=== PATIENT | female | born 1985 | race Caucasian/White ===

== ENCOUNTER → 2017-01-21 | Outpatient (CLI) | payer BC ==
--- NOTE | 2017-01-22 09:48 | MRI ---
STUDY: MRI OF THE BRAIN WITHOUT AND WITH GADOLINIUM HISTORY: Elevated prolactin level. Technique: Multiplanar multi-sequence MRI of the brain was obtained utilizing standard departmental p rotocol. Sagittal and axial T1, axial T2, FLAIR, diffusion (DWI/ADC) images through the brain were pe rformed. 20 cc of Omniscan was administered intravenously without reported complication following acquisition of informed written consent. Post gadolinium axial and coronal T1 weighted images were also performed and reviewed. High-resolution sagittal and coronal pre and post gadolinium T1 and coronal T2 weighted images throug h the pituitary gland were also performed. Comparison: None. Findings: Pre gadolinium brain: The sulci, cisterns and ventricles are age appropriate. There are several punct ate foci of T2 prolongation in the subcortical white matter of both hemispheres. This is a nonspecifi c finding which may be seen in a variety of clinical conditions including but not limited to microang iopathic change and demyelinating disease in a patient of this age. These may also be seen in neurolo gically normal individuals. There is no evidence of acute territorial infarction, hemorrhage, mass, mass effect, or midline shift . There are no abnormal intra-axial or extra-axial fluid collections. The major intracranial vascula r flow voids appear intact. The right vertebral artery is dominant. Post gadolinium brain: Following the uneventful administration of intravenous gadolinium, there is no evidence of abnormal parenchymal or leptomeningeal enhancement. MRI sella: There is a partially empty sella turcica. Pituitary glandular tissue is identified in the inferior aspect of the sella. The infundibulum appears draped over the superior margin of the dorsum sella. No discrete mass is identified. There is no evidence of cavernous sinus invasion. The cavernou s internal carotid artery flow voids are intact. There is no evidence of optic nerve or optic chiasm compression. IMPRESSION: 1. No evidence of acute intracranial abnormality. 2. Nonspecific white matter change. 3. Partially empty sella turcica. No evidence of discrete mass within the sella at this time. Reported By:
== END | disposition home or self-care (01) ==
LOC: RAD 15:20
PROVIDERS: ATTEND Obstetrics & Gynecology
DX: E22.1 Hyperprolactinemia (principal)
CPT/HCPCS: 70553

== ENCOUNTER 2017-06-19 18:56 | Emergency (ER) | payer BC ==
--- NOTE | 2017-06-19 19:02 | DR.GENAD ---
HPI - HPI Comment HPI Comment: HISTORY BELOW. - Complaint/Symptoms Chief Complaint Doctors Comments: PAIN UPPER LEFT ABDOMEN AND LOWER LEFT CHEST UNDER BREAST TIMES ONE WEEK. PAIN WORSE TONIGHT. PAIN AGREVATED BY EATING. NAUSEATED BUT NO VOMITING OR DIARRHEA. TAKES PRECOCET FOR CHRONIC BACK PAIN BUT STILL SEVERE PAIN NOTED. NO TRAUMA. - Nurses notes reviewed Nurses Notes Review: Yes - Source History Provided: Parent - Mode of Arrival Mode of Arrival: Ambulatory - Timing Came on: Gradually - Duration Duration: Constant Duration: Days - Severity Severity: Moderate ROS - Review of Systems Constitutional: Weakness, Fatigue. negative: Fever Eyes: No Symptoms Reported. negative: Eye Pain, Discharge ENTM: No Symptoms Reported. negative: Ear Discharge, Nose Discharge, Nose Congestion, Throat Pain Respiratoy: No Symptoms Reported, Non-Productive Cough, Short of Breath. negative: Productive Cough, Wheezing, Hemoptysis Cardiovascular: Chest Pain. negative: Edema, Palpitations Gastrointestinal/Abdominal: Abdominal Pain, Nausea. negative: Diarrhea, Vomiting Genitourinary: No Symptoms Reported Neurological: No Symptoms Reported, Weakness. negative: Headache, Dizziness Musculoskeletal: Muscle Pain Integumentary: No Symptoms Reported Hematologic/Lymphatic: No Symptoms Reported Endocrine: No Symptoms Reported All Other Systems: Reviewed and Negative PE - Vital Signs Vitals: Temperature 98.9 F Pulse Rate [Left Brachial] 85 Pulse Rate 82 Respiratory Rate 16 Blood Pressure [Left Arm] 147/81 Blood Pressure 130/82 O2 Sat by Pulse Oximetry 100 - General Limitations: No Limitations General Appearance: Alert - Head Head Exam: Normal Inspection - Eyes Eye exam: Normal Appearance - ENT ENT Exam: Normal External Ear Exam External Ear Exam: Normal External Inspection TM/Canal Exam: Bilateral Normal Nose Exam: Normal Nose Exam Mouth Exam: Normal Inspection Throat Exam: Normal Inspection - Neck Neck Exam: Normal Inspection - Chest Chest Inspection: Symmetric Chest Wall Rise - Respiratory Respiratory Exam: Normal Lung Sounds Bilat Respiratory Exam: Bilateral Rhonchi, Lower Rhonchi - Cardiovascular Cardiovascular Exam: Regular Rate, Normal Rhythm, Normal Heart Sounds - Abdominal Exam Abdominal Exam: Normal Bowel Sounds, Soft, Tenderness Abdominal Tenderness: LUQ, Moderate - Extremities Extremities Exam: Normal Inspection - Back Back Exam: Normal Inspection - Neurologic Neurological Exam: Alert, Oriented X3 - Psychiatric Psychiatric Exam: Normal Affect, Normal Mood - Skin Skin Exam: Normal Color MDM - Differential Diagnosis Differential Diagnosis: ABDOMINAL PAIN, DC, PE, PUD, GASTRITIS, PNEUMONIA Course - Treatment Treatment: SEE ORDERS. IN PEPCID AND IV NS IN ED. - Consultation Consultation Comments: DR. BENTLEY SAID PATIENT CAN TAKE PAIN MED Q6HRS PRN FOR PAIN. - Education/Counseling Education/Counseling: Patient, Education Educated On: Diagnosis, Needs for Follow Up ROR - Labs Reviewed Laboratory Results Reviewed?: Yes Result Diagrams: 06/19/17 20:04 06/19/17 20:04 Laboratory: WBC 13.1 X10^3/uL (3.6-10.0) H 06/19/17 20:04 RBC 5.35 X10^6/uL (3.5-5.4) 06/19/17 20:04 Hgb 13.8 g/dL (12.0-16.0) 06/19/17 20:04 Hct 42.0 % (36.0-47.0) 06/19/17 20:04 MCV 78.5 fL (80.0-100.0) L 06/19/17 20:04 MCH 25.9 pg (27.0-34.0) L 06/19/17 20:04 MCHC 33.0 g/dL (33.0-35.0) 06/19/17 20:04 RDW 15.7 % (11.6-16.5) 06/19/17 20:04 Plt Count 480 X10^3/uL (150.0-450.0) H 06/19/17 20:04 Plt Count Comment Increased (ADEQUATE) A 06/19/17 20:04 MPV 7.4 fL (7.4-11.0) 06/19/17 20:04 Neut % 56.4 % (42.0-75.0) 06/19/17 20:04 Lymph % 30.6 % (21.0-51.0) 06/19/17 20:04 Garrett % 7.9 % (0.0-13.0) 06/19/17 20:04 Eos % 3.6 % (0.9-2.9) H 06/19/17 20:04 Baso % 1.5 % (0.2-1.0) H 06/19/17 20:04 Neut # 7.4 x10^3/uL (2.2-4.8) H 06/19/17 20:04 Lymph # 4.0 X10^3/uL (1.3-2.9) H 06/19/17 20:04 Garrett # 1.0 x10^3/uL (0.3-0.8) H 06/19/17 20:04 Eos # 0.5 x10^3/uL (0.0-0.2) H 06/19/17 20:04 Baso # 0.2 X10^3/uL (0.0-0.1) H 06/19/17 20:04 Absolute Nucleated RBC 0.1 /100WBC 06/19/17 20:04 Plt Morphology Comment Normal (NORMAL) 06/19/17 20:04 RBC Morphology Abnormal (NORMAL) A 06/19/17 20:04 Hypochromasia Slight A 06/19/17 20:04 Microcytosis Slight A 06/19/17 20:04 D-Dimer 320 ng/mL (0-400) 06/19/17 20:04 Sodium 139 mmol/L (136-145) 06/19/17 20:04 Corrected Sodium TNP 06/19/17 20:04 Potassium 4.4 mmol/L (3.5-5.1) 06/19/17 20:04 Chloride 102 mmol/L (98-107) 06/19/17 20:04 Carbon Dioxide 27.7 mmol/L (21-32) 06/19/17 20:04 BUN 11 mg/dL (7-18) 06/19/17 20:04 Creatinine 0.94 mg/dL (0.55-1.02) 06/19/17 20:04 Est GFR (MDRD) Af Amer > 60 (>60) 06/19/17 20:04 Est GFR (MDRD) Non-Af > 60 (>60) 06/19/17 20:04 Glucose 94 mg/dL (65-99) 06/19/17 20:04 Calcium 8.9 mg/dL (8.5-10.1) 06/19/17 20:04 Corrected Calcium TNP 06/19/17 20:04 Total Bilirubin 0.20 mg/dL (0.2-1.0) 06/19/17 20:04 AST 35 Units/L (15-37) 06/19/17 20:04 ALT 65 Units/L (12-78) 06/19/17 20:04 Alkaline Phosphatase 128 Units/L (46-116) H 06/19/17 20:04 Creatine Kinase 65 Units/L (26-192) 06/19/17 20:04 CK-MB (CK-2) < 1.0 ng/mL (0-4.0) 06/19/17 20:04 CK/CKMB % Calc 1.5 % (<4) 06/19/17 20:04 Troponin I < 0.02 ng/mL (0-1.5) 06/19/17 20:04 Total Protein 8.5 g/dL (6.4-8.2) H 06/19/17 20:04 Albumin 3.9 g/dL (3.4-5.0) 06/19/17 20:04 Globulin 4.6 g/dL (2.5-4.5) H 06/19/17 20:04 Albumin/Globulin Ratio 0.8 Ratio (1.1-2.1) L 06/19/17 20:04 Amylase 21 Units/L (25-115) L 06/19/17 20:04 Lipase 119 Units/L (73-393) 06/19/17 20:04 Specimen Type Clean catch urine 06/19/17 19:24 Urine Color Yellow (YELLOW) 06/19/17 19:24 Urine Appearance Cloudy (CLEAR) 06/19/17 19:24 Urine pH 5.0 (5.0 - 8.0) 06/19/17 19:24 Ur Specific [place] 1.025 (1.000-1.030) 06/19/17 19:24 Urine Protein 2+ (NEGATIVE) 06/19/17 19:24 Urine Glucose (UA) Negative (NEGATIVE) 06/19/17 19:24 Urine Ketones Negative (NEGATIVE) 06/19/17 19:24 Urine Occult Blood 1+ (NEGATIVE) 06/19/17 19:24 Urine Nitrite Negative (NEGATIVE) 06/19/17 19:24 Urine Bilirubin Negative (NEGATIVE) 06/19/17 19:24 Urine Urobilinogen Normal (NORMAL) 06/19/17 19:24 Ur Leukocyte Esterase 1+ (NEGATIVE) 06/19/17 19:24 Urine RBC 0-3 /HPF (NONE SEEN) 06/19/17 19:24 Urine WBC 3-5 /HPF (NONE SEEN) 06/19/17 19:24 Ur Squamous Epith Cells Numerous /HPF (NEGATIVE) 06/19/17 19:24 Urine Bacteria 2+ /HPF (NEGATIVE) 06/19/17 19:24 Ur Culture Indicated? No/not indicated 06/19/17 19:24 H. pylori IgG Antibody Positive (NEGATIVE) A 06/19/17 20:04 - XRAY XRAY Findings: REPORT DISCUSS WITH PATIENT. - Diagnosis Discharge Problem: Helicobacter pylori ab+ Abdominal pain Qualifiers: Abdominal location: left upper quadrant Qualified Code(s): R10.12 - Left upper quadrant pain Chest pain Qualifiers: Chest pain type: intercostal pain Qualified Code(s): R07.82 - Intercostal pain - Discharge Plan Disposition: 01 HOME, SELF-CARE Condition: Stable - Follow ups/Referrals Follow ups/Referrals: KAMI BENTLEY [Primary Care Provider] - 06/20/17 - Instructions Instructions: Abdominal Pain, Adult, [id number], Helicobacter Pylori Antibodies Test Additional Instructions: RETURN TO ED IF WORSE. CONTINUE WITH PAIN MED AT HOME.
[2017-06-19 19:07] VITALS: BMI 56.6
[2017-06-19 19:41] LABS: BILIRUBIN,URINE NEGATIVE (NEGATIVE); BLOOD/HEMOGLOBIN,URINE 1+ (NEGATIVE); GLUCOSE, URINE NEGATIVE (NEGATIVE); KETONES,URINE NEGATIVE (NEGATIVE); LEUKOCYTE ESTERASE ,URINE 1+ (NEGATIVE); NITRITES,URINE NEGATIVE (NEGATIVE); PROTEIN,URINE 2+ (NEGATIVE); UROBILINOGEN,URINE NORMAL (NORMAL)
[2017-06-19] MEDS ORDERED: PEPCID 20 MG IV PREMIX* 20 MG/50 ML BAG IV ONE ×2 (19:43→19:45)
[2017-06-19] MEDS ORDERED: NS 1000 ML 1,000 ML ONE (19:45)
[2017-06-19 19:49] LABS: COLOR,URINE YELLOW (YELLOW)
[2017-06-19 19:50] LABS: APPEARANCE,URINE CLOUDY (CLEAR); BACTERIA,URINE 2+ /HPF (NEGATIVE); RBC,URINE 0-3 /HPF (NONE SEEN); SQUAMOUS EPITHELIAL CELL,UR NUMEROUS /HPF (NEGATIVE)
[2017-06-19] MEDS ORDERED: NS 1000 ML 1,000 ML IV SCH (20:00)
[2017-06-19 20:21] LABS: BASOPHILS # (AUTO) 0.2 X10^3/uL (0.0-0.1); BASOPHILS % (AUTO) 1.5 % (0.2-1.0); EOSINOPHILS # (AUTO) 0.5 x10^3/uL (0.0-0.2); EOSINOPHILS % (AUTO) 3.6 % (0.9-2.9); HEMOGLOBIN 13.8 g/dL (12.0-16.0); LYMPHOCYTES % (AUTO) 30.6 % (21.0-51.0); MEAN CORPUSCULAR HEMOGLOBIN 25.9 pg (27.0-34.0); MEAN CORPUSCULAR VOLUME 78.5 fL (80.0-100.0); MEAN PLATELET VOLUME 7.4 fL (7.4-11.0); MONOCYTES % (AUTO) 7.9 % (0.0-13.0); NEUTROPHILS # (AUTO) 7.4 x10^3/uL (2.2-4.8); NEUTROPHILS % (AUTO) 56.4 % (42.0-75.0); PLATELET COUNT 480 X10^3/uL (150.0-450.0); RED BLOOD COUNT 5.35 X10^6/uL (3.5-5.4); RED CELL DISTRIBUTION WIDTH 15.7 % (11.6-16.5); WHITE BLOOD COUNT 13.1 X10^3/uL (3.6-10.0)
[2017-06-19 20:37] LABS: HYPOCHROMASIA SLIGHT; MICROCYTOSIS SLIGHT; PLATELET MORPHOLOGY COMMENT NORMAL (NORMAL)
[2017-06-19 20:45] LABS: BLOOD UREA NITROGEN 11 mg/dL (7-18); CALCIUM 8.9 mg/dL (8.5-10.1); CARBON DIOXIDE 27.7 mmol/L (21-32); CHLORIDE 102 mmol/L (98-107); CREATININE 0.94 mg/dL (0.55-1.02); SODIUM 139 mmol/L (136-145); TROPONIN I < 0.02 ng/mL (0-1.5); eGFR BLACK RACES > 60 (>60); eGFR NON BLACK RACES > 60 (>60)
[2017-06-19 20:49] LABS: ALANINE AMINOTRANSFERASE 65 Units/L (12-78); ALBUMIN 3.9 g/dL (3.4-5.0); ALKALINE PHOSPHATASE 128 Units/L (46-116); AMYLASE 21 Units/L (25-115); ASPARTATE AMINO TRANSFERASE 35 Units/L (15-37); CKMB % 1.5 % (<4); CREATINE KINASE 65 Units/L (26-192); CREATINE KINASE MB < 1.0 ng/mL (0-4.0); LIPASE 119 Units/L (73-393); TOTAL PROTEIN 8.5 g/dL (6.4-8.2)
--- NOTE | 2017-06-19 21:44 | CT ---
CT ABDOMEN AND PELVIS WITHOUT CONTRAST CLINICAL HISTORY: 32-year-old female with abdominal pain for a week COMPARISON: None. TECHNIQUE: Multiple contiguous computed tomographic axial images of the abdomen and pelvis were obtai sam without the use of oral or intravenous contrast. Images were reformatted in the coronal and sagit amadou planes. FINDINGS: The lung bases demonstrate no evidence of focal air-space opacification, pleural effusion, pneumothor ax, or suspicious pulmonary nodules. The imaged inferior mediastinum and heart are normal in appeara nce without evidence of pericardial effusion. The gallbladder, pancreas, and spleen are within normal limits for noncontrast imaging. Hepatomegaly with diffuse hepatic steatosis without focal mass lesion or biliary ductal dilatation. The adrenal glands and kidneys are normal bilaterally. There are no nephroureteral stones or perineph selma fluid collections. There is no evidence of hydroureteronephrosis and the ureters run in an unobst ructed course to a partial distended urinary bladder. The uterus is anteverted and normal in size. Right adnexal cyst measuring up to 3.2 cm with left adn exal cyst measuring up to 3.5 cm. Small sub serosal 1.3 cm cystic structure along the anterior uterin e wall that likely represents fibroid. The prostate, seminal vesicles, and external genitalia are wit hin normal limits. The appendix is normal in appearance. The bowel is without obstruction or inflammation and there is no free fluid or free air within the peritoneal cavity. There are no pathologically enlarged lymph n odes in the abdomen or pelvis. The arteriovascular structures are within normal limits for a study without contrast. Soft tissues are normal. The osseous structures are intact without fracture or malalignment. IMPRESSION: 1. Collateral adnexal cysts measuring up to 3.2 cm on the right and 3.5 cm on the left, most likely b enign, follow-up with [employer] [employer]. 2. Suspected uterine fibroid, follow-up with [employer]. 3. Hepatomegaly with diffuse hepatic steatosis, correlate with serology for acute viral hepatitis. 4. No other acute intra-abdominal or intrapelvic process. Reported By:
[2017-06-19 22:51] VITALS: BP 147/81
== END 2017-06-19 22:52 | disposition home or self-care (01) ==
LOC: ER 19:09
DX: R10.12 Left upper quadrant pain (principal); R07.82 Intercostal pain; R16.0 Hepatomegaly, not elsewhere classified; K76.0 Fatty (change of) liver, not elsewhere classified
CPT/HCPCS: 36415; 74176; 80053; 81001; 82150; 82550; 82553; 83690; 84484; 85025; 85378; 86677; 96365; 96367; 96374; 99283; 99284; A4222; S0028